=== PATIENT | male | born 2000 | race Caucasian/White ===

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

== ENCOUNTER 2020-10-04 15:13 | Inpatient (IN) | payer SELFPAY ==
[2020-10-04 15:17] VITALS: BP 119/60; PULSE 58; RESP 18; TEMP 36.7; O2SAT 94; BMI 29.0
--- NOTE | 2020-10-04 15:24 | ECG_ITS ---
[facility] Test Date: 2020-10-04 Pat Name: Don Jane II Department: Room: Gender: Male Accounting Assistant: : 2000 Requested By: Jaden Landaverde Order Number: [id number] Selin MD: MCKENZIE MAYA Measurements Intervals [place] Rate: 53 P: 18 AK: 120 QRS: 79 QRSD: 101 T: 58 QT: 387 QTc: 366 Interpretive Statements SINUS BRADYCARDIA POSSIBLE RIGHT VENTRICULAR CONDUCTION DELAY [RSR (QR) IN V1/V2] MODERATE VOLTAGE CRITERIA FOR LVH, CONSIDER NORMAL VARIANT [MEETS CRITERIA IN ONE OF: R(aVL), S(V1), R(V5), R(V5/V6)+S(V1)] ST DEVIATION AND MODERATE T-WAVE ABNORMALITY, CONSIDER ANTERIOR ISCHEMIA [-0.1+ mV T WAVE IN V3/V4] No previous ECG available for comparison Electronically Signed On 10-04-2020 19:23:14 LINING FINISHER by MCKENZIE MAYA [email or web address] IV Sem[facility]ductorf[id number]
[2020-10-04 15:50] LABS: Basophils % 0.5 %; Eosinophils # 0.1 10^3/uL (0.0-0.8); Eosinophils % 1.7 %; Hematocrit 43.1 % (42.0-52.0); Lymphocytes # 1.5 10^3/uL (1.5-6.5); Lymphocytes % 24.4 %; Mean Corpuscular HGB Conc 32.5 g/dL (30.0-36.0); Mean Corpuscular Hemoglobin 30.4 pg (28.0-34.0); Mean Corpuscular Volume 93.7 fL (80-94); Mean Platelet Volume 9.6 fL (7.4-10.4); Monocytes # 0.6 10^3/uL (0.2-0.9); Monocytes % 9.8 %; Neutrophils # 3.77 10^3/uL (1.8-8.0); Neutrophils % 63.4 %; Nucleated Red Blood Cells % 0 %; Platelet Count 245 10^3/cmm (130-400); Red Cell Distribution Width 12.5 % (12.1-15.1); White Blood Count 5.9 10^3/uL (4.5-13.0)
[2020-10-04 16:02] LABS: Add Urine Microscopic? NO
[2020-10-04 16:08] LABS: Bilirubin Urine Neg (Negative); Blood Urine Neg (Negative); Glucose Urine UA Norm (Normal); Ketones Urine Negative (Negative); Leukocyte Esterase Urine Negative (Negative); Nitrate Urine Negative (Negative); Protein Urine Neg (Negative); Specific Gravity, Urine 1.005 (1.005-1.030); Urine Appearance Clear (CLEAR); Urine Color Yellow (Yellow); Urobilinogen Urine Norm (Negative); pH Urine 7 (5-7)
[2020-10-04 16:15] LABS: Amphetamines Screen Urine Negative (Negative); Barbiturates Screen Urine Negative (Negative); Benzodiazepines Screen Urine Negative (Negative); Cocaine Screen Urine Negative (Negative); Opiate Screen Urine Negative (Negative); PCP Screen Urine Negative (Negative); THC Screen Urine Negative (Negative)
[2020-10-04 16:24] LABS: Acetaminophen 9.9 ug/mL (10-30); Alanine Aminotransferase 39 U/L (0-41); Albumin Level 4.4 g/dL (3.5-5.2); Alkaline Phosphatase 92 IU/L (40-130); Anion Gap 13.1 (5-19); Aspartate Amino Transferase 67 U/L (0-40); Blood Urea Nitrogen 18 mg/dL (6-20); Calcium 9.8 mg/dL (8.5-10.5); Carbon Dioxide 27 mmol/L (22-29); Chloride 100 mmol/L (98-107); Globulin 2.8 g/dL (1.3-4.6); Glomerular Filtration Rate 107.6 mL/min (90-130); Glucose 92 mg/dL (65-115); Osmolality Calculated 284 mOsm/kg (285-295); Potassium 4.1 mmol/L (3.5-5.1); Sodium 136 mmol/L (136-145); Thyroid Stimulating Hormone 1.27 uIU/mL (0.27-4.20); Total Bilirubin 0.2 mg/dL (0.15-1.2); Total Protein 7.2 g/dL (6.6-8.7)
[2020-10-04 16:40] LABS: Alcohol Level < 10 mg/dL (0-10); Salicylate < 0.3 mg/dL (3-10)
--- NOTE | 2020-10-04 16:54 | W.ED.PSYCH ---
HPI - Psych General: Chief Complaint: Psychiatric Symptoms Stated Complaint: MHE Time Seen by Provider: 10/04/20 15:24 History of Present Illness: HPI Narrative: The patient is a 20-year-old male with past medical history depression who comes to the ER complaining of suicidal thoughts. When asked if he had a plan he says plans change but offers no explicit plan. He says he has seen multiple mental health providers one time and they did not like him. He follows a primary care physician who gives him escitalopram and Risperdal. He has tried to tie things around his neck in the past but made no attempt today. He says he feels the pressure of everyone's also expectations and he is letting them down and not able to live up to those expectations is the primary reason he feels depressed. MD complaint: suicidal ideation and feels depressed Duration: intermittent History of same: Yes Associated symptoms: Reports depression If self harm: admits thoughts of self harm Review of Systems General: Reports: 10 or more systems reviewed and unremarkable except in HPI and below Const: Denies: fatigue Eyes: Denies: change in vision, blurry vision or eye redness ENMT: Denies: throat pain, swelling of lips/tongue, ear or mastoid pain or nasal congestion Card: Denies: chest pain, palpitations, irregular heart rhythm, edema, dyspnea on exertion or orthopnea Resp: Denies: dyspnea, productive cough or non-productive cough GI: Denies: abdominal pain, diarrhea or GI cramping : Denies: flank pain, urinary frequency or urinary urgency Musc: Denies: neck pain, back pain, extremity pain, joint pain, joint redness, limited range of motion or muscle weakness Skin/Breast: Denies: rash, pruritus, erythema, skin pain or skin tenderness Neuro: Denies: headache(s), numbness in extremities, weakness in extremities, sensory changes, difficulty walking, dizziness, confusion or Slurred speech present Psych: Reports: depression; Denies: anxiety Endo: Denies: polyuria All/Imm: Denies: urticaria, throat swelling or tongue swelling PFSH ED PFSH: Medical History (Updated 10/04/20 @ 17:02 by ) Mood disorder Social History (Updated 12/26/19 @ 15:11 by Cristy Randolph LPN) Smoking and tobacco status: former smoker Quit status (tobacco): has quit using tobacco Year quit tobacco: 09/2019 Former quit date comment: 1 pack per 2 weeks for about 6 months Second hand smoke exposure: No Current gender identity: Male Physical Exam Const: COMMON NORMALS: no acute distress, average body habitus, patient oriented x3, no limitations, healthy appearing, alert and well nourished GENERAL APPEARANCE: cooperative, comfortable, well kempt and well developed ORIENTATION/CONSCIOUSNESS: Yes awake, Yes oriented to person, Yes oriented to place and Yes oriented to time HENMT: COMMON NORMALS: normocephalic, external ears normal and Normal external nose present HEAD & SCALP: normal to inspection and normocephalic NOSE: Normal external nose present EXTERNAL EAR: Yes external ears normal MOUTH: Normal oral and palatal mucosa present THROAT: posterior oropharynx normal Eye: COMMON NORMALS: Equal, round and reactive pupils present and EOMs intact bilaterally GENERAL EYE: appearance normal, both eyes and all related structures PUPIL: Yes Equal, round and reactive pupils present Neck/C-Spine: COMMON NORMALS: full ROM, no lymphadenopathy, no meningeal signs and no JVD GENERAL: Yes normal visual inspection Lymph: LYMPHATIC: no lymphadenopathy noted Chest: COMMONS NORMALS: normal inspection of the chest and normal palpation of entire chest wall Resp: COMMON NORMALS: normal respiratory effort, No retractions, No use of accessory muscles, clear to auscultation bilaterally and percussion normal EFFORT & INSPECTION: Yes able to speak in complete sentences AUSCULTATION: clear to auscultation bilaterally PERCUSSION: percussion normal Cardio: COMMON NORMALS: no JVD, regular rate, regular rhythm, S1 normal heart sound present, S2 normal heart sound present and Peripheral pulses 2+ throughout RATE: regular rate RHYTHM: regular rhythm HEART SOUNDS: S1 normal heart sound present and S2 normal heart sound present PERIPHERAL PULSES: Peripheral pulses 2+ throughout GI: COMMON NORMALS: Normal to inspection, nondistended, normoactive bowel sounds present, Soft to palpation, non-tender and no masses INSPECTION: Yes normal to inspection PALPATION: Yes Soft to palpation : COMMON NORMALS: Yes no CVA tenderness BLADDER/KIDNEY EXAM: Yes no CVA tenderness Back/Pelvis: COMMON NORMALS: no CVA tenderness, thoracic and lumbar spine normal to inspection, no thoracic nor lumbar tenderness and thoraco-lumbar ROM normal Extremity: COMMON NORMALS: normal to inspection, full ROM, capillary refill normal, no joint enlargement and no pedal edema GENERAL: Yes normal exam except as noted Neuro: COMMON NORMALS: patient oriented x3, CN's II-XII intact bilaterally, moves all extremities, no focal motor deficits, no sensory deficits noted and gait normal SENSORIUM/ORIENTATION: Yes alert, Yes oriented to person, Yes oriented to place and Yes oriented to time MENINGEAL SIGNS: Yes no meningeal signs Psych: COMMON NORMALS: mental status grossly normal, cooperative, normal affect and speech normal APPEARANCE: Yes well kempt ATTITUDE: Yes calm SPEECH: Yes normal speech THOUGHT CONTENT: Yes Suicidality present Skin: COMMON NORMALS: no rashes or lesions noted GENERAL SKIN EXAM: no rashes or lesions noted MDM - Psych MDM Narrative: Medical decision making narrative: Patient complains of suicidal ideations. Denies alcohol and drugs. Labs normal. Discussed with Dr. Mcfarlane who accepts to the Neuropsych Unit. Lab Data: Labs: Lab Results 10/04/20 10/04/20 10/04/20 Range/Units 15:37 15:37 15:53 WBC 5.9 (4.5-13.0) 10^3/ uL RBC 4.60 (4.1-5.3) 10^6/u L Hgb 14.0 (11.7-16.6) g/dL Hct 43.1 (42.0-52.0) % MCV 93.7 (80-94) fL MCH 30.4 (28.0-34.0) pg MCHC 32.5 (30.0-36.0) g/dL RDW 12.5 (12.1-15.1) % Plt Count 245 (130-400) 10^3/c mm MPV 9.6 (7.4-10.4) fL Neut % (Auto) 63.4 % Lymph % (Auto) 24.4 % Garrett % (Auto) 9.8 % Eos % (Auto) 1.7 % Baso % (Auto) 0.5 % Neut # (Auto) 3.77 (1.8-8.0) 10^3/u L Lymph # (Auto) 1.5 (1.5-6.5) 10^3/u L Garrett # (Auto) 0.6 (0.2-0.9) 10^3/u L Eos # (Auto) 0.1 (0.0-0.8) 10^3/u L Baso # (Auto) 0.0 (0.0-0.1) 10^3/u L Nucleated RBC % (a uto) 0 % Nucleated RBCs # 0.0 /100WBC Sodium 136 (136-145) mmol/L Potassium 4.1 (3.5-5.1) mmol/L Chloride 100 (98-107) mmol/L Carbon Dioxide 27 (22-29) mmol/L Anion Gap 13.1 (5-19) BUN 18 (6-20) mg/dL Creatinine 0.9 (0.7-1.2) mg/dL GFR Calculation 107.6 (90-130) mL/min Glucose 92 (65-115) mg/dL Calculated Osmolal ity 284 L (285-295) mOsm/k g Calcium 9.8 (8.5-10.5) mg/dL Total Bilirubin 0.2 (0.15-1.2) mg/dL AST 67 H (0-40) U/L ALT 39 (0-41) U/L Alkaline Phosphata se 92 (40-130) IU/L Total Protein 7.2 (6.6-8.7) g/dL Albumin 4.4 (3.5-5.2) g/dL Globulin 2.8 (1.3-4.6) g/dL TSH 1.27 (0.27-4.20) uIU/ mL Urine Color Yellow (Yellow) Urine Appearance Clear (CLEAR) Urine pH 7 (5-7) Ur Specific Gravit y 1.005 (1.005-1.030) Urine Protein Neg (Negative) Urine Glucose (UA) Norm (Normal) Urine Ketones Negative (Negative) Urine Blood Neg (Negative) Urine Nitrate Negative (Negative) Urine Bilirubin Neg (Negative) Urine Urobilinogen Norm (Negative) mg/dL Ur Leukocyte Jud ase Negative (Negative) Salicylates < 0.3 L (3-10) mg/dL Urine Opiates Scre en (Negative) ng/mL Acetaminophen 9.9 L (10-30) ug/mL Ur Barbiturates Sc reen (Negative) ng/mL Ur Phencyclidine S crn (Negative) ng/mL Ur Amphetamines Sc reen (Negative) ng/mL U Benzodiazepines Scrn (Negative) ng/mL Urine Cocaine Scre en (Negative) ng/mL U Marijuana (THC) Screen (Negative) ng/mL Ethyl Alcohol < 10 (0-10) mg/dL 10/04/20 Range/Units 15:53 WBC (4.5-13.0) 10^3/ uL RBC (4.1-5.3) 10^6/u L Hgb (11.7-16.6) g/dL Hct (42.0-52.0) % MCV (80-94) fL MCH (28.0-34.0) pg MCHC (30.0-36.0) g/dL RDW (12.1-15.1) % Plt Count (130-400) 10^3/c mm MPV (7.4-10.4) fL Neut % (Auto) % Lymph % (Auto) % Garrett % (Auto) % Eos % (Auto) % Baso % (Auto) % Neut # (Auto) (1.8-8.0) 10^3/u L Lymph # (Auto) (1.5-6.5) 10^3/u L Garrett # (Auto) (0.2-0.9) 10^3/u L Eos # (Auto) (0.0-0.8) 10^3/u L Baso # (Auto) (0.0-0.1) 10^3/u L Nucleated RBC % (a uto) % Nucleated RBCs # /100WBC Sodium (136-145) mmol/L Potassium (3.5-5.1) mmol/L Chloride (98-107) mmol/L Carbon Dioxide (22-29) mmol/L Anion Gap (5-19) BUN (6-20) mg/dL Creatinine (0.7-1.2) mg/dL GFR Calculation (90-130) mL/min Glucose (65-115) mg/dL Calculated Osmolal ity (285-295) mOsm/k g Calcium (8.5-10.5) mg/dL Total Bilirubin (0.15-1.2) mg/dL AST (0-40) U/L ALT (0-41) U/L Alkaline Phosphata se (40-130) IU/L Total Protein (6.6-8.7) g/dL Albumin (3.5-5.2) g/dL Globulin (1.3-4.6) g/dL TSH (0.27-4.20) uIU/ mL Urine Color (Yellow) Urine Appearance (CLEAR) Urine pH (5-7) Ur Specific Gravit y (1.005-1.030) Urine Protein (Negative) Urine Glucose (UA) (Normal) Urine Ketones (Negative) Urine Blood (Negative) Urine Nitrate (Negative) Urine Bilirubin (Negative) Urine Urobilinogen (Negative) mg/dL Ur Leukocyte Jud ase (Negative) Salicylates (3-10) mg/dL Urine Opiates Scre en Negative (Negative) ng/mL Acetaminophen (10-30) ug/mL Ur Barbiturates Sc reen Negative (Negative) ng/mL Ur Phencyclidine S crn Negative (Negative) ng/mL Ur Amphetamines Sc reen Negative (Negative) ng/mL U Benzodiazepines Scrn Negative (Negative) ng/mL Urine Cocaine Scre en Negative (Negative) ng/mL U Marijuana (THC) Screen Negative (Negative) ng/mL Ethyl Alcohol (0-10) mg/dL Discharge Plan Discharge Patient Disposition: Admitted As Inpatient Admit Provider: Lillian Mcfarlane Clinical Impression: Depression, Suicidal ideation Condition: Stable Coding Level of Care Code ED Latent Fingerprint Examiner for Chg Fwd Exam Comprehensive
[2020-10-04 17:44] VITALS: BP 102/66; PULSE 72; RESP 18; TEMP 36.6; O2SAT 96
[2020-10-04 17:46] VITALS: BP 119/60; PULSE 58; RESP 18; TEMP 36.7; O2SAT 94
[2020-10-04 17:48] VITALS: BP 119/60; PULSE 58; RESP 18; TEMP 36.7; O2SAT 94
[2020-10-04] MEDS: nicotine 2 mg Gum BUCCAL (18:38)
--- NOTE | 2020-10-04 19:31 | P.PN_ITS ---
NPU Therapy Progress Note Therapy Progress Note Date: 10/04/20 Time In: 18:20 Time Out: 18:40 Symptoms Reported: suicidal, anger, irritability Mood: quite friendly and presentation does not match sx reported Progress Note: ALARM INSTALLATION TECHNICIAN approached Don in the dayroom and he is willing to speak with ALARM INSTALLATION TECHNICIAN. This ALARM INSTALLATION TECHNICIAN assisted Don as a crisis therapist in the role of getting him to the hospital safely. Don expressed appreciation of this. He opens up and talks about ongoing SI since teenage years; however, his sx increased after a breakup with a girlfriend (of 3 months). She apparently called him to ask how he was doing and this angered him greatly. He feels as if he was lied to while they were dating. He further discusses issues in the relationship with his father, as he feels he cannot meet his father's expectations. His father did express approval of his Ex which was pleasant and surprising to him, rachel to have the relationship end suddenly and quickly. Don not only experienced eth loss of the relationship, he feels he again lost his father's approval. Intervention: ALARM INSTALLATION TECHNICIAN listened and provided support. ALARM INSTALLATION TECHNICIAN reflected emotions and frustrations and validated the deeper issue of the desire of relationship with his father. He was educated about therapy tx and his need to engage in order to help reduce these repressed anger emotions. Reported Goals Before Discharge: visit with the doctor
[2020-10-04] MEDS: risperiDONE 1 mg Tablet PO (19:47)
[2020-10-04 22:00] VITALS: BP 131/50; PULSE 74; RESP 16; TEMP 36.4; O2SAT 96
[2020-10-05 06:00] VITALS: BP 114/57; PULSE 85; RESP 17; TEMP 36.6; O2SAT 97
[2020-10-05] MEDS: escitalopram 10 mg Tablet PO (09:19)
[2020-10-05] MEDS: nicotine 2 mg Gum BUCCAL ×3 (09:19→20:01)
--- NOTE | 2020-10-05 10:17 | PM.NHP ---
Providers/Chief Complaint Admitting Physician: Lillain Mcfarlane DO Chief Complaint: MHE HPI NPU History of Present Illness Don Jane II is a 20 year old male with history of impulse control, mood disorder, depressive disorder, panic disorder presents to the emergency department in the context of worsening suicidal ideation and depressive symptoms that appear to be exacerbated by less than therapeutic control of his anxiety symptoms as well as inadequate, poor coping with ongoing life stressors to include recent break-up with a girlfriend. Patient reports lifelong history of depressive symptoms as well as chronic, passive suicidal ideation. Patient communicates a lack of control over his life situations and as previously documented in outpatient notes, patient's mother states that the patient has a mismatch between his expectations and reality which she does not deal well with. Patient also describes other borderline traits but denies any history of cutting or self-harm behavior. Patient does have a remote history of self-harm around age 10 with no subsequent episodes. Patient reports reports near daily transient depressive symptoms and has ill-defined past major depressive episodes in which he may have experienced some impairment with social and occupational functioning related to his depressive symptoms. He currently denies any suicidal ideation. Patient reports periods of difficulty sleeping but states that these are secondary to racing thoughts and is never experienced any periods of decreased need for sleep, pressured speech, distractibility related to mood or impulsive, reckless behavior in the context of an elevated or expansive mood state. He does not appear to have any past described episodes of hypomanic or manic behavior. Patient does report some episodes of dysregulation of mood and affect that appear to happen in the midst of crises or during periods of stress in which he feels like he has no control Patient also reports having daily anxiety symptoms for as long as he remembers. He reports excessive worry, difficulty controlling his worrying as well as racing thoughts that impair his ability to initiate sleep. He also reports episodes of panic but denies any preoccupation with subsequent episodes of the consequence of these episodes, nor any changes in his behavior as a result of these panic attacks. He denies being on any higher doses of antidepressant targeting his anxiety symptoms nor any therapy targeted directly at his anxiety symptoms. Psychiatric review of systems is otherwise negative. Patient reports that his symptoms have recently been compounded by break-up with a girlfriend as well as having to work at [employer] after returning from job core secondary to COVID. Review of Systems General: Reports: 10 or more systems reviewed and unremarkable except in HPI and below Meds NPU Home Medications Medication Instructions Recorded Confirmed Last Taken Type escitalopram oxalate 10 mg tablet 10 mg PO DAILY #30 tab 08/22/20 10/04/20 10/04/20 Rx Risperdal 1 mg PO DAILY@0000 10/04/20 10/04/20 10/04/20 History diphenhydramine-acetaminophen 1 tab PO Q4H PRN 10/04/20 10/04/20 10/04/20 History [Pain Reliever (diphen-acetam)] Allergies Allergy/AdvReac Type Severity Reaction Status Date / Time No Known Allergies Allergy Verified 10/04/20 15:23 PFSH NPU PFSH: Medical History Mood disorder Social History Smoking and tobacco status: former smoker Quit status (tobacco): has quit using tobacco Year quit tobacco: 09/2019 Former quit date comment: 1 pack per 2 weeks for about 6 months Second hand smoke exposure: No Current gender identity: Male Other Psychiatric History: Other Psychiatric History: 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, reports history of self-harm around age 10 Reports medication management with psychiatric nurse practitioner on a monthly basis for impulse control, mood disorder, panic disorder Denies any history of psychiatric hospitalization Mental Status Exam MSE Comments: Appears stated age, unshaven, calm, cooperative, interactive, good eye contact Psychomotor activity is neither increased nor decreased, no agitation Speech is normal rate and volume, spontaneous, clear articulation, not pressured I feel okay, full range, not labile Alert and oriented to person, place, time, situation Memory and concentration appear to be intact per interview Intellectual functioning appears to be average based on vocabulary, interview Thought process, linear, no flight of ideas, no looseness of associations Thought content, no delusions, no hallucinations, no suicidal homicidal ideation Insight and judgment appear to be fair to intact Vitals/I&O/Wt Last Vital Signs Temp 97.8 F 10/05/20 06:00 Pulse 85 10/05/20 06:00 Resp 17 10/05/20 06:00 BP 114/57 10/05/20 06:00 Pulse Ox 97 10/05/20 06:00 Weight last 48 hrs Weight 81.647 kg Data NPU : 10/04/20 15:37 10/04/20 15:37 A&P Assessment and plan (1) Depression: Status: Acute (2) Suicidal ideation: Status: Acute (3) Mood disorder: Status: Chronic (4) Generalized anxiety disorder: Status: Acute Additional A&P Information 20-year-old male with longstanding history of depressive symptoms with mood and affect dysregulation, never describes any true hypomania or julianna but describes periods of significant depression causing significant impairment in social and occupational functioning. Patient also describes chronic passive suicidal ideation with external locus of control with ongoing mismatch between expectations and reality with borderline traits but no history of self-harm behavior although has a remote history of self-harm around age 10. Patient attributes recent worsening of suicidal ideation to his antidepressant which she decreased on his own to Lexapro 5 mg with some improvement although reports daily suicidal ideation. Patient would benefit from titrating up on antidepressant targeting depressive and anxiety symptoms as well as therapy targeting development of more adaptive coping strategies. Involuntary Hold Information 96 Hour Hold: 96 Hour Involuntary Admission: No Attestations NPU Medical Necessity Statement*: Require psychiatric hospitalization for medical stabilization and observation for further suicidal ideation, coordination for safe discharge Anticipate hospital stay to exceed 2 midnights Time Spent in Patient Care: Greater than 35 minutes (>than 50% of time spent in counselling and/or direct pt care on unit). Coding Level of Care Code Acute Printed Circuit Boards Stripper Etcher for Arturo Cota Diagnoses Depression F32.9 Suicidal ideation R45.851 Mood disorder F39 Generalized anxiety disorder F41.1
[2020-10-05] MEDS: fluoxetine 10 mg Capsule PO (11:14)
[2020-10-05 14:00] VITALS: BP 118/53; PULSE 75; RESP 18; TEMP 37.2; O2SAT 97
[2020-10-05] MEDS: trazodone 50 mg Tablet PO (20:43)
[2020-10-05] MEDS: risperiDONE 1 mg Tablet PO (20:43)
[2020-10-05 21:09] VITALS: BP 108/51; PULSE 64; RESP 18; TEMP 36.6; O2SAT 97
[2020-10-06 06:00] VITALS: BP 102/57; PULSE 54; RESP 15; TEMP 36.6; O2SAT 96
[2020-10-06] MEDS: nicotine 2 mg Gum BUCCAL ×2 (06:41→09:18)
[2020-10-06] MEDS: fluoxetine 10 mg Capsule PO (08:16)
[2020-10-06] MEDS: nicotine 21 mg Patch 1 PATCH TRANSDERMA (12:12)
--- NOTE | 2020-10-06 12:20 | PM.NDC ---
Diagnoses at Discharge Discharge Diagnosis (1) Depression: Status: Acute (2) Suicidal ideation: Status: Acute (3) Mood disorder: Status: Chronic (4) Generalized anxiety disorder: Status: Acute Reason for Visit Reason for Visit: [facility] Hospital Course Hospital Course 20 year old male with history of impulse control, mood disorder, depressive disorder, panic disorder presents to the emergency department in the context of worsening suicidal ideation and depressive symptoms that appear to be exacerbated by less than therapeutic control of his anxiety symptoms as well as inadequate, poor coping with ongoing life stressors to include recent break-up with a girlfriend. Patient had reported that previous increase of Lexapro had caused him to feel more suicidal although patient does have chronic, passive suicidal ideation as well as describing other borderline personality traits. Patient reports difficulty dealing with stressors but reports not being able to get into [facility] for therapy but has been followed for medication management. Patient's Lexapro was discontinued and started on fluoxetine which was titrated up to fluoxetine 20 mg daily targeting mood and affect instability, anxiety symptoms which he tolerated well with no reports of any medication side effects. Patient participated in unit milieu with no reports of any behavioral disturbances. Patient quickly reconstituted reporting no depressive symptoms and no suicidal ideation with desire to continue outpatient management for his depressive and anxiety symptoms. He was not suicidal at the time of discharge and did not appear to pose an imminent threat of harm to self or others. Low to moderate risk given no current suicidal ideation, no current psychiatric symptoms although patient has chronic, passive suicidal ideation with no recent history of self-harm behavior although patient's risk may be elevated if he is noncompliant with medication, medication management and counseling follow-up to target development of more adaptive coping strategies in the context of ongoing stressors. Risk mitigation included psychiatric hospitalization to observe for any suicidal ideation or behaviors as well as recommendation to continue compliance with his medication medication management and counseling follow-up. Patient was able to communicate his understanding of the need to be compliant with his medication, medication management and counseling follow-up in order to develop more adaptive coping strategies in order to further mitigate his risk of harm to self and others. Involuntary Hold Information 96 Hour Hold: 96 Hour Involuntary Admission: No Mental Status Exam MSE Comments: Appropriately groomed and dressed, calm, polite, interactive, good eye contact Psychomotor activity is neither increased nor decreased, no agitation Speech is normal rate and volume, spontaneous, clear articulation, not pressured I feel much better, full range, not labile Alert and oriented to person, place, time, situation Memory and concentration appear to be intact per interview Thought process, linear, no flight of ideas, no looseness of associations Thought content, no delusions, no hallucinations, no suicidal homicidal ideation Insight and judgment appear to be fair to intact Discharge Data Vitals: Last Vital Signs Temp 97.9 F 10/06/20 06:00 Pulse 54 L 10/06/20 06:00 Resp 15 10/06/20 06:00 BP 102/57 10/06/20 06:00 Pulse Ox 96 10/06/20 06:00 Discharge Plan Discharge Patient Disposition: Home Condition: Stable Prescriptions: New fluoxetine 10 mg Capsule 20 mg PO DAILY Qty: 30 RF: 0 Continued diphenhydramine-acetaminophen 25-500 mg Tablet 1 tab PO Q4H PRN (Reason: Pain) RF: 0 Risperdal 0.5 mg tablet 1 mg PO DAILY@0000 RF: 0 Discontinued escitalopram oxalate 10 mg tablet 10 mg PO DAILY Qty: 30 RF: 1 Discharge Orders: Discharge Order (Routine); Ordered 10/06/20 Ordered By: Lillian Mcfarlane Discharge Diet: Regular Discharge Activity: Resume usual activity Discharge Attestations NPU Time Spent in Discharge Care*: greater than 30 min Status at Discharge: Cognitive status at discharge: cognitively intact, Behavioral status at discharge: cooperative, Functional status at discharge: independent ambulation Overall status at discharge: patient is back to baseline Coding Level of Care Code Acute Catheterization Laboratory Technician for Arturo Cota Diagnoses Depression F32.9 Suicidal ideation R45.851 Mood disorder F39 Generalized anxiety disorder F41.1
[2020-10-06 12:22] VITALS: BP 102/57; PULSE 54; RESP 15; TEMP 36.6; O2SAT 96
== END 2020-10-06 12:26 | disposition home or self-care (01) | DRG 881 ==
LOC: ER 17:02 → NP 17:03
PROVIDERS: Admitting Provider Psychiatry & Neurology Psychiatry; Emergency Provider Family Medicine; Visit Provider Psychiatry & Neurology Psychiatry
DX: F32.9 Major depressive disorder, single episode, unspecified (principal); R45.851 Suicidal ideations; F39 Unspecified mood [affective] disorder; F41.1 Generalized anxiety disorder; Z87.891 Personal history of nicotine dependence; Z91.5 Personal history of self-harm
CPT/HCPCS: 80053; 80306; 80307; 81003; 84443; 85025; 93005; 99285

== ENCOUNTER 2021-06-03 10:22 | Emergency (ER) | payer MEDICAID, SELFPAY ==
[2021-06-03] VITALS (9 sets, daily range): BP systolic 103–135; BP diastolic 63–77; PULSE 45–83; RESP 18; TEMP 36.7; O2SAT 98–99; BMI 26.6
--- NOTE | 2021-06-03 11:55 | XRR_ITS ---
PROCEDURE INFORMATION: Exam: XR Chest Exam date and time: 06/03/2021 11:55 AM Age: 21 years old Clinical indication: Other: Syncope, seizures; Patient HX: Syncope, PT states having seizures TECHNIQUE: Imaging protocol: XR of the chest. Views: 1 view. COMPARISON: CR XR KUB [id number] 08/11/2018 9:50 AM FINDINGS: Lungs: Unremarkable. No consolidation. Pleural spaces: Unremarkable. No pleural effusion. No pneumothorax. Heart/Mediastinum: Unremarkable. No cardiomegaly. Bones/joints: Unremarkable. XR/XR chest 1V portable [id number] IMPRESSION: No acute findings. Radiation Dose CTDIVOL = (mGy): DLP = (mGy-cm)
--- NOTE | 2021-06-03 11:55 | CT_ITS ---
WS: [id number] CT HEAD NONCONTRAST HISTORY: recurrent syncope; possible seizures TECHNIQUE: Contiguous axial imaging performed through the brain in 2.5 mm imaging. Bone and soft tiss ue windows. Sagittal and coronal reformats reviewed. All CT scans at [facility] use at least one of these dose optimization techniques: automated exposure control; mA and/or kV adjustment per pa tient size (includes targeted exams where dose is matched to clinical indication); or iterative recon struction. DLP: 849.21 mGy.cm COMPARISON: None available. No acute intracranial hemorrhage, midline shift or mass effect. No atrophy or prior infarcts or herniation. Ventricles: Normal size with no hydrocephalus. Paranasal sinuses: As visualized are clear. Mastoid air cells: Well pneumatized. Calvarium and scalp: Skull is intact with no soft tissue edema or swelling. CT/CT head wo con* [id number] IMPRESSION: Negative head CT.
[2021-06-03 12:01] LABS: Basophils % 0.3 %; Eosinophils # 0.1 10^3/uL (0.0-0.8); Eosinophils % 1.6 %; Hematocrit 43.4 % (42.0-52.0); Hemoglobin 14.7 g/dL (11.7-16.6); Lymphocytes # 2.1 10^3/uL (0.8-4.8); Lymphocytes % 34.5 %; Mean Corpuscular HGB Conc 33.9 g/dL (30.0-36.0); Mean Corpuscular Hemoglobin 30.4 pg (28.0-34.0); Mean Corpuscular Volume 89.9 fl (80-94); Mean Platelet Volume 10.1 fL (7.4-10.4); Monocytes # 0.5 10^3/uL (0.2-0.9); Monocytes % 7.5 %; Neutrophils % 55.8 %; Nucleated Red Blood Cells % 0 %; Platelet Count 237 10^3/cmm (130-400); Red Blood Count 4.83 10^6/uL (4.1-5.3); Red Cell Distribution Width 11.3 % (12.1-15.1); White Blood Count 6.1 10^3/uL (4.0-10.0)
[2021-06-03 12:23] LABS: Alanine Aminotransferase 12 U/L (0-41); Albumin Level 4.5 g/dL (3.5-5.2); Alkaline Phosphatase 101 IU/L (40-130); Anion Gap 14.3 (5-19); Aspartate Amino Transferase 18 U/L (0-40); Blood Urea Nitrogen 14 mg/dL (6-20); Calcium 9.4 mg/dL (8.5-10.5); Carbon Dioxide 26 mmol/L (22-29); Chloride 101 mmol/L (98-107); Globulin 3.3 g/dL (1.3-4.6); Glomerular Filtration Rate 142.4 mL/min (90-130); Glucose 82 mg/dL (65-115); Osmolality Calculated 284 mOsm/kg (285-295); Potassium 4.3 mmol/L (3.5-5.1); Sodium 137 mmol/L (136-145); Total Bilirubin 0.3 mg/dL (0.15-1.2); Total Protein 7.8 g/dL (6.6-8.7)
--- NOTE | 2021-06-03 12:35 | ED_ITS ---
Documented by User: ROOPA Padilla 06/03/21 14:21 HPI - Syncope General: Chief Complaint: Syncope Stated Complaint: pt states having Seizures Time Seen by Provider: 06/03/21 10:39 Source: patient Mode of arrival: ambulatory Limitations: no limitations History of Present Illness: HPI narrative: Patient is a 21-year-old male who presents to ED today with a complaint of multiple syncopal/possible seizure events. Patient states over the past 2 to 3 weeks he has had a total of 4-6 episodes where he will get tunnel vision and then collapse. He states some episodes have been witnessed by his mother as well as coworkers who have stated that he will jerk and spasm . Patient tells me symptoms do not seem to be brought on by positional changes. He states episodes will last anywhere from 15 seconds to a few minutes. Patient states following these episodes he feels weak, has a frontal headache, feels dizzy and nauseous and slightly disoriented. Patient has never had an episode of incontinence or tongue biting. Patient denies symptoms of heart racing, palpitations, chest pain, or shortness of breath. Symptoms do not seem to be brought on by exertion. He has no history of congenital heart disease. Denies drug use. Current medications include sertraline and risperidone. No recent changes in dosing. MD complaint: loss of consciousness Onset (ago): day(s) Description of event: post-event confusion Prodromal symptoms: vision changes Witnessed: Yes - by Bystander (family, coworker) Context: at rest and standing up Injuries sustained associated with event: none Associated symptoms: Reports headache(s) (following episode ) and nausea (following episode); Deny abdominal pain, chest pain, fever(s) or lightheadedness Treatments prior to arrival: none Review of Systems Const: Denies: fever(s), chills, body aches, fatigue or malaise Eyes: Reports: other (tunnel vision during episodes); Denies: photophobia, eye discomfort, eye discharge, floaters or seeing flashes Card: Reports: syncope; Denies: chest pain, palpitations, irregular heart rhythm, edema, swelling of feet/ankles, lightheadedness, pre-syncope, dyspnea on exertion or orthopnea Resp: Denies: dyspnea, productive cough, non-productive cough or chest congestion GI: Reports: nausea (following episode); Denies: abdominal pain or vomiting Musc: Denies: neck pain, back pain, extremity pain or joint pain Skin/Breast: Denies: rash Neuro: Reports: headache(s) (following episode ) and confusion (following epis ode ); Denies: numbness in extremities, weakness in extremities, sensory changes, difficulty walking or dizziness [facility] ED PFSH: Medical History (Updated 06/03/21 @ 14:00 by ROOPA Padilla) Mood disorder Psychiatric care Social History Smoking and tobacco status: former smoker Quit status (tobacco): has quit using tobacco Year quit tobacco: 09/2019 Former quit date comment: 1 pack per 2 weeks for about 6 months Second hand smoke exposure: No Current gender identity: Male Physical Exam Const: COMMON NORMALS: no acute distress, average body habitus, patient oriented x3, no limitations, healthy appearing, alert and well nourished GENERAL APPEARANCE: cooperative ORIENTATION/CONSCIOUSNESS: Yes awake, Yes oriented to person, Yes oriented to place and Yes oriented to time HENMT: COMMON NORMALS: normocephalic and atraumatic HEAD & SCALP: normo cephalic and atraumatic Neck/C-Spine: COMMON NORMALS: full ROM, no lymphadenopathy and no meningeal signs Resp: COMMON NORMALS: normal respiratory effort and clear to auscultation bilaterally AUSCULTATION: clear to auscultation bilaterally Cardio: COMMON NORMALS: regular rate and regular rhythm RATE: regular rate RHYTHM: regular rhythm Extremity: COMMON NORMALS: normal to inspection Neuro: LOYD COMA SCALE: document GCS findings [place] coma scale eye opening: Spontaneous Loyd coma scale verbal response: Orientated [place] coma scale motor response: Obey commands Loyd coma scale total score: 15 COMMON NORMALS: patient oriented x3, CN's II-XII intact bilaterally, moves all extremities, no focal motor deficits, no sensory deficits noted and gait normal SENSORIUM/ORIENTATION: Yes alert, Yes oriented to person, Yes oriented to place and Yes oriented to time MENINGEAL SIGNS: Yes no meningeal signs Skin: COMMON NORMALS: no rashes or lesions noted GENERAL SKIN EXAM: no rashes or lesions noted Course ED course: orthostatics are normal Vital Signs: Vital signs: Vital Signs Temperature 98.1 F 06/03/21 10:31 Pulse Rate 83 06/03/21 14:18 Respiratory Rate 18 06/03/21 10:31 Blood Pressure 119/71 06/03/21 14:18 Pulse Oximetry 99 06/03/21 14:18 MDM - Syncope MDM Narrative: Medical decision making narrative: Symptoms are not exertional. He does not have complaints of palpitations, shortness of breath, chest pain, orthopnea, or lightheadedness/dizziness. History is most consistent with seizure-like episodes. I will have set her up with neurology for further evaluation. He does want to start anti-elliptic medications today to see if these will help with symptoms. Strict return to ED precautions given. Lab Data: Labs: Lab Results 06/03/21 06/03/21 06/03/21 10:50 10:50 12:25 WBC 6.1 10^3/uL 10^3/ uL (4.0-10.0) RBC 4.83 10^6/uL 10^6 /uL (4.1-5.3) Hgb 14.7 g/dL g/dL (11.7-16.6) Hct 43.4 % % (42.0-52.0) MCV 89.9 fl fl (80-94) MCH 30.4 pg pg (28.0-34.0) MCHC 33.9 g/dL g/dL (30.0-36.0) RDW 11.3 % L % (12.1-15.1) Plt Count 237 10^3/cmm 10^3 /cmm (130-400) MPV 10.1 fL fL (7.4-10.4) Neut % (Auto) 55.8 % % Lymph % (Auto) 34.5 % % Sibley % (Auto) 7.5 % % Eos % (Auto) 1.6 % % Baso % (Auto) 0.3 % % Neut # (Auto) 3.40 10^3/uL 10^3 /uL (1.8-7.7) Lymph # (Auto) 2.1 10^3/uL 10^3/ uL (0.8-4.8) Sibley # (Auto) 0.5 10^3/uL 10^3/ uL (0.2-0.9) Eos # (Auto) 0.1 10^3/uL 10^3/ uL (0.0-0.8) Baso # (Auto) 0.0 10^3/uL 10^3/ uL (0.0-0.1) Nucleated RBC % (a uto) 0 % % Nucleated RBCs # 0.0 /100WBC /100W BC Sodium 137 mmol/L mmol/L (136-145) Potassium 4.3 mmol/L mmol/L (3.5-5.1) Chloride 101 mmol/L mmol/L (98-107) Carbon Dioxide 26 mmol/L mmol/L (22-29) Anion Gap 14.3 (5-19) BUN 14 mg/dL mg/dL (6-20) Creatinine 0.7 mg/dL mg/dL (0.7-1.2) GFR Calculation 142.4 mL/min H mL /min (90-130) Glucose 82 mg/dL mg/dL (65-115) Calculated Osmolal ity 284 mOsm/kg L mOs m/kg (285-295) Calcium 9.4 mg/dL mg/dL (8.5-10.5) Magnesium 2.0 mg/dL mg/dL (1.7-2.3) Total Bilirubin 0.3 mg/dL mg/dL (0.15-1.2) AST 18 U/L U/L (0-40) ALT 12 U/L U/L (0-41) Alkaline Phosphata se 101 IU/L IU/L (40-130) Total Protein 7.8 g/dL g/dL (6.6-8.7) Albumin 4.5 g/dL g/dL (3.5-5.2) Globulin 3.3 g/dL g/dL (1.3-4.6) Urine Opiates Scre en Negative ng/mL ng /mL (Negative) Ur Barbiturates Sc reen Negative ng/mL ng /mL (Negative) Ur Phencyclidine S crn Negative ng/mL ng /mL (Negative) Ur Amphetamines Sc reen Negative ng/mL ng /mL (Negative) U Benzodiazepines Scrn Negative ng/mL ng /mL (Negative) Urine Cocaine Scre en Negative ng/mL ng /mL (Negative) U Marijuana (THC) Screen Negative ng/mL ng /mL (Negative) Imaging Data^: CXR: Radiologist's impression: [email or web address], [place] [address]HAvy ReportSigned Patient: Don Jane II #: [id number]: [id number]#:[id number]/Sex: Date: 06/03/21Loc: ERRoom/Bed:Attending Dr: Ordering Provider/Ordering MD: Sharon Galvez Date of Service: 06/03/21 Procedure(s): XR chest 1V portable [id number] Accession Number(s): [id number] Report Number: [id number] PROCEDURE INFORMATION: Exam: XR Chest Exam date and time: 06/03/2021 11:55 AM Age: 21 years old Clinical indication: Other: Syncope, seizures; Patient HX: Syncope, PT states having seizures TECHNIQUE: Imaging protocol: XR of the chest. Views: 1 view. COMPARISON: CR XR KUB [id number] 08/11/2018 9:50 AM FINDINGS: Lungs: Unremarkable. No consolidation. Pleural spaces: Unremarkable. No pleural effusion. No pneumothorax. Heart/Mediastinum: Unremarkable. No cardiomegaly. Bones/joints: Unremarkable. XR/XR chest 1V portable [id number] IMPRESSION: No acute findings. Radiation Dose CTDIVOL = (mGy): DLP = (mGy-cm) Dictated By:Kwabena Gallegos By:Kwabena Gallegos Date/Time:06/03/21 1305DD/ 1155 CT Head: Radiologist's impression: [facility] [id number] [facility], [place] [address]UH Scan ReportSigned Patient: Don Jane II #: [id number]: [id number]#:[id number]/Sex: Date: 06/03/21Loc: ERRoom/Bed:Attending Dr: Ordering Provider/Ordering MD: Sharon Galvez Date of Service: 06/03/21 Procedure(s): CT head wo con* [id number] Accession Number(s): [id number] Report Number: [id number] WS: [id number] CT HEAD NONCONTRAST HISTORY: recurrent syncope; possible seizures TECHNIQUE: Contiguous axial imaging performed through the brain in 2.5 mm imaging. Bone and soft tissue windows. Sagittal and coronal reformats reviewed. All CT scans at [facility] use at least one of these dose optimization techniques: automated exposure control; mA and/or kV adjustment per patient size (includes targeted exams where dose is matched to clinical indication); or iterative reconstruction. DLP: 849.21 mGy.cm COMPARISON: None available. No acute intracranial hemorrhage, midline shift or mass effect. No atrophy or prior infarcts or herniation. Ventricles: Normal size with no hydrocephalus. Paranasal sinuses: As visualized are clear. Mastoid air cells: Well pneumatized. Calvarium and scalp: Skull is intact with no soft tissue edema or swelling. CT/CT head wo con* [id number] IMPRESSION: Negative head CT. Dictated By:Talisha De Luna DOSigned By:Talisha De Luna DOSigned Date/Time:06/03/21 1302DD/ 1300 EKG Data^: EKG 1: EKG interpretation date: 06/03/21 EKG interpretation time: 11:28 Interpretation: Sinus bradycardia with sinus arrhythmia Normal SC interval/QTc EKG discussed and reviewed with Dr. Strong Discharge Plan Discharge Patient Disposition: Home Clinical Impression: Syncopal episodes Qualifiers: Syncope type: unspecified Qualified Code(s): R55 - Syncope and collapse Condition: Stable Prescriptions: New Keppra 500 mg tablet 500 mg PO BID Qty: 60 RF: 0 No Action risperidone 1 mg tablet 1 mg PO DAILY Qty: 30 RF: 2 sertraline 50 mg tablet 100 mg PO DAILY Qty: 60 RF: 2 diphenhydramine-acetaminophen 25-500 mg Tablet 1 tab PO Q4H PRN (Reason: Pain) RF: 0 Discharge Orders: Discharge ED (Routine); Ordered 06/03/21 Ordered By: Sharon Galvez Activity Restrictions/Additional Instructions: As we discussed I do not want you driving or operating heavy machinery until you are evaluated and instructed otherwise by neurology. Please start medications immediately. You need to return to the ED for any further episodes of passing out. Coding Level of Care Code ED Equipment Monitor Phototypesetting for Chg Fwd Exam Comprehensive Documented by User: Pawel Strong MD 06/07/21 16:38 HPI - Syncope General: Chief Complaint: Syncope Stated Complaint: pt states having Seizures Time Seen by Provider: 06/03/21 10:39 PFSH ED PFSH: Medical History (Updated 06/03/21 @ 14:00 by ROOPA Padilla) Mood disorder Psychiatric care Social History Smoking and tobacco status: former smoker Quit status (tobacco): has quit using tobacco Year quit tobacco: 09/2019 Former quit date comment: 1 pack per 2 weeks for about 6 months Second hand smoke exposure: No Current gender identity: Male Course Vital Signs: Vital signs: Vital Signs Temperature 98.1 F 06/03/21 10:31 Pulse Rate 83 06/03/21 14:18 Respiratory Rate 18 06/03/21 10:31 Blood Pressure 119/71 06/03/21 14:18 Pulse Oximetry 99 06/03/21 14:18 MDM - Syncope MDM Narrative: Medical decision making narrative: I discussed this case with ROOPA Padilla. I have reviewed documentation, labs, imaging. Pawel Strong MD Emergency Medicine Lab Data: Labs: Lab Results 06/03/21 06/03/21 06/03/21 10:50 10:50 12:25 WBC 6.1 10^3/uL 10^3/ uL (4.0-10.0) RBC 4.83 10^6/uL 10^6 /uL (4.1-5.3) Hgb 14.7 g/dL g/dL (11.7-16.6) Hct 43.4 % % (42.0-52.0) MCV 89.9 fl fl (80-94) MCH 30.4 pg pg (28.0-34.0) MCHC 33.9 g/dL g/dL (30.0-36.0) RDW 11.3 % L % (12.1-15.1) Plt Count 237 10^3/cmm 10^3 /cmm (130-400) MPV 10.1 fL fL (7.4-10.4) Neut % (Auto) 55.8 % % Lymph % (Auto) 34.5 % % Sibley % (Auto) 7.5 % % Eos % (Auto) 1.6 % % Baso % (Auto) 0.3 % % Neut # (Auto) 3.40 10^3/uL 10^3 /uL (1.8-7.7) Lymph # (Auto) 2.1 10^3/uL 10^3/ uL (0.8-4.8) Sibley # (Auto) 0.5 10^3/uL 10^3/ uL (0.2-0.9) Eos # (Auto) 0.1 10^3/uL 10^3/ uL (0.0-0.8) Baso # (Auto) 0.0 10^3/uL 10^3/ uL (0.0-0.1) Nucleated RBC % (a uto) 0 % % Nucleated RBCs # 0.0 /100WBC /100W BC Sodium 137 mmol/L mmol/L (136-145) Potassium 4.3 mmol/L mmol/L (3.5-5.1) Chloride 101 mmol/L mmol/L (98-107) Carbon Dioxide 26 mmol/L mmol/L (22-29) Anion Gap 14.3 (5-19) BUN 14 mg/dL mg/dL (6-20) Creatinine 0.7 mg/dL mg/dL (0.7-1.2) GFR Calculation 142.4 mL/min H mL /min (90-130) Glucose 82 mg/dL mg/dL (65-115) Calculated Osmolal ity 284 mOsm/kg L mOs m/kg (285-295) Calcium 9.4 mg/dL mg/dL (8.5-10.5) Magnesium 2.0 mg/dL mg/dL (1.7-2.3) Total Bilirubin 0.3 mg/dL mg/dL (0.15-1.2) AST 18 U/L U/L (0-40) ALT 12 U/L U/L (0-41) Alkaline Phosphata se 101 IU/L IU/L (40-130) Total Protein 7.8 g/dL g/dL (6.6-8.7) Albumin 4.5 g/dL g/dL (3.5-5.2) Globulin 3.3 g/dL g/dL (1.3-4.6) Urine Opiates Scre en Negative ng/mL ng /mL (Negative) Ur Barbiturates Sc reen Negative ng/mL ng /mL (Negative) Ur Phencyclidine S crn Negative ng/mL ng /mL (Negative) Ur Amphetamines Sc reen Negative ng/mL ng /mL (Negative) U Benzodiazepines Scrn Negative ng/mL ng /mL (Negative) Urine Cocaine Scre en Negative ng/mL ng /mL (Negative) U Marijuana (THC) Screen Negative ng/mL ng /mL (Negative) Discharge Plan Discharge Patient Disposition: Home Clinical Impression: Syncopal episodes Qualifiers: Syncope type: unspecified Qualified Code(s): R55 - Syncope and collapse Condition: Stable Prescriptions: New Keppra 500 mg tablet 500 mg PO BID Qty: 60 RF: 0 No Action risperidone 1 mg tablet 1 mg PO DAILY Qty: 30 RF: 2 sertraline 50 mg tablet 100 mg PO DAILY Qty: 60 RF: 2 diphenhydramine-acetaminophen 25-500 mg Tablet 1 tab PO Q4H PRN (Reason: Pain) RF: 0 Discharge Orders: Discharge ED (Routine); Ordered 06/03/21 Ordered By: Sharon Galvez Activity Restrictions/Additional Instructions: As we discussed I do not want you driving or operating heavy machinery until you are evaluated and instructed otherwise by neurology. Please start medications immediately. You need to return to the ED for any further episodes of passing out. Coding Level of Care Code ED Equipment Monitor Phototypesetting for Arturo Cota Exam Comprehensive
[2021-06-03 12:58] LABS: Amphetamines Screen Urine Negative (Negative); Barbiturates Screen Urine Negative (Negative); Benzodiazepines Screen Urine Negative (Negative); Cocaine Screen Urine Negative (Negative); Opiate Screen Urine Negative (Negative); PCP Screen Urine Negative (Negative); THC Screen Urine Negative (Negative)
--- NOTE | 2021-06-04 09:22 | DCPLANNER ---
manager company had message to schedule a follow up appointment for patient with neurology. manager company emailed patients information to the neurology clinic. Patients information will be printed and reviewed. Clinic will call patient with appointment information.
--- NOTE | 2021-06-06 07:29 | DCPLANNER ---
Patient has a follow up appointment scheduled for Wednesday, June 09, 2021 at 10:[address] Mcnalyl. Clinic will call patient with appointment information.
--- NOTE | 2021-06-12 16:28 | DCPLANNER ---
Patient had a follow up appointment scheduled for 06.09.[address] Mcnally - patient did attend appointment.
== END 2021-06-03 14:20 | disposition home or self-care (01) ==
PROVIDERS: Emergency Provider Physician Assistant
DX: R55 Syncope and collapse (principal); Z87.891 Personal history of nicotine dependence; F39 Unspecified mood [affective] disorder
CPT/HCPCS: 70450; 71045; 80053; 80306; 83735; 85025; 93005; 99283

== ENCOUNTER → 2021-06-09 10:21 | Outpatient (BNVA) | payer MEDICAID, SELFPAY | PROVIDERS: Referring Provider Physician Assistant; Visit Provider Nurse Practitioner | DX: R56.9 Unspecified convulsions (principal); F90.9 Attention-deficit hyperactivity disorder, unspecified type; F17.290 Nicotine dependence, other tobacco product, uncomplicated | CPT/HCPCS: 99204 ==

== ENCOUNTER → 2021-06-18 08:32 | Outpatient (BNVA) | payer MEDICAID, SELFPAY | PROVIDERS: PCP Family Medicine; Referring Provider Nurse Practitioner; Visit Provider Specialist | DX: R56.9 Unspecified convulsions (principal); F17.290 Nicotine dependence, other tobacco product, uncomplicated | CPT/HCPCS: 95816 ==

== ENCOUNTER 2021-06-26 10:34 | Outpatient (CLI) | payer MEDICAID, SELFPAY ==
[2021-06-26 10:56] LABS: Basophils % 0.6 %; Eosinophils # 0.1 10^3/uL (0.0-0.8); Eosinophils % 1.9 %; Hematocrit 43.8 % (42.0-52.0); Lymphocytes # 1.6 10^3/uL (0.8-4.8); Mean Corpuscular HGB Conc 34.2 g/dL (30.0-36.0); Mean Corpuscular Hemoglobin 30.5 pg (28.0-34.0); Mean Corpuscular Volume 89.2 fl (80-94); Mean Platelet Volume 9.3 fL (7.4-10.4); Monocytes # 0.4 10^3/uL (0.2-0.9); Monocytes % 8.8 %; Neutrophils # 2.54 10^3/uL (1.8-7.7); Neutrophils % 54.5 %; Nucleated Red Blood Cells % 0 %; Platelet Count 207 10^3/cmm (130-400); Red Blood Count 4.91 10^6/uL (4.1-5.3); Red Cell Distribution Width 11.1 % (12.1-15.1); White Blood Count 4.7 10^3/uL (4.0-10.0)
[2021-06-26 11:25] LABS: Alanine Aminotransferase 8 U/L (0-41); Albumin Level 4.5 g/dL (3.5-5.2); Alkaline Phosphatase 93 IU/L (40-130); Ammonia 24 umol/L (16-60); Aspartate Amino Transferase 12 U/L (0-40); Globulin 2.5 g/dL (1.3-4.6); Total Bilirubin 0.4 mg/dL (0.15-1.2); Valproic Acid Level 42.9 ug/mL (50-100)
== END 2021-06-26 10:35 | disposition home or self-care (01) ==
LOC: LAB 10:40
PROVIDERS: Nurse Practitioner; PCP Family Medicine; Visit Provider Specialist
DX: Z01.89 Encounter for other specified special examinations (principal); G40.909 Epilepsy, unspecified, not intractable, without status epilepticus; E72.20 Disorder of urea cycle metabolism, unspecified; K76.9 Liver disease, unspecified
CPT/HCPCS: 36415; 80076; 80164; 82140; 85025

== ENCOUNTER → 2021-07-03 08:24 | Outpatient (BNVA) | payer MEDICAID, SELFPAY | PROVIDERS: PCP Family Medicine; Visit Provider Nurse Practitioner Psychiatric/Mental Health | DX: F41.1 Generalized anxiety disorder (principal); F63.9 Impulse disorder, unspecified; F41.0 Panic disorder [episodic paroxysmal anxiety] | CPT/HCPCS: 99214 ==

== ENCOUNTER → 2021-08-06 08:04 | Outpatient (BNVA) | payer MEDICAID, SELFPAY | PROVIDERS: PCP Family Medicine; Visit Provider Specialist | DX: R56.9 Unspecified convulsions (principal); R55 Syncope and collapse; F41.1 Generalized anxiety disorder; F32.9 Major depressive disorder, single episode, unspecified | CPT/HCPCS: 99214; 99215 ==

== ENCOUNTER → 2021-09-16 09:09 | Outpatient (BNVA) | payer MEDICAID, SELFPAY | PROVIDERS: PCP Family Medicine; Visit Provider Nurse Practitioner Psychiatric/Mental Health | DX: Z79.899 Other long term (current) drug therapy (principal); F41.1 Generalized anxiety disorder; F63.9 Impulse disorder, unspecified; F41.0 Panic disorder [episodic paroxysmal anxiety] | CPT/HCPCS: 80061; 83036; 99214 ==

== ENCOUNTER → 2021-11-17 14:23 | Outpatient (BNVA) | payer MEDICAID, SELFPAY | PROVIDERS: PCP Family Medicine; Visit Provider Nurse Practitioner Psychiatric/Mental Health | DX: F41.1 Generalized anxiety disorder (principal); F41.0 Panic disorder [episodic paroxysmal anxiety]; F63.9 Impulse disorder, unspecified | CPT/HCPCS: 99213 ==

== ENCOUNTER → 2021-12-03 14:41 | Outpatient (BNVA) | payer MEDICAID, SELFPAY | PROVIDERS: PCP Family Medicine; Visit Provider Specialist | DX: G40.909 Epilepsy, unspecified, not intractable, without status epilepticus (principal); R55 Syncope and collapse; F41.1 Generalized anxiety disorder; F32.9 Major depressive disorder, single episode, unspecified; F17.290 Nicotine dependence, other tobacco product, uncomplicated | CPT/HCPCS: 99214 ==

== ENCOUNTER → 2022-01-12 14:20 | Outpatient (BNVA) | payer MEDICAID, SELFPAY | PROVIDERS: PCP Family Medicine; Visit Provider Specialist | DX: R56.9 Unspecified convulsions (principal) | CPT/HCPCS: 99214 ==

== ENCOUNTER 2024-08-08 21:05 | Emergency (ER) | payer SELFPAY ==
[2024-08-08 21:22] VITALS: BP 144/76; PULSE 73; RESP 17; TEMP 36.9; O2SAT 97; BMI 26.6
--- NOTE | 2024-08-08 21:40 | USR_ITS ---
PROCEDURE INFORMATION: Exam: US Left Limited Joint or Other Non-Vascular Extremity Structure Exam date and time: 08/08/2024 10:04 PM Age: 24 years old Clinical indication: Pain; Thigh; Patient HX: Left inguinal hernia evaluation. TECHNIQUE: Imaging protocol: US left limited joint or other nonvascular extremity structure. Real-time ultrasound with image documentation. Exam focused on the area of clinical interest. COMPARISON: No relevant prior studies available. FINDINGS: Soft tissues: Unremarkable. No loculated collections. Other findings: Left inguinal hernia seen with a neck measuring approximately 1.1 cm. US/US soft tissue/extremity [id number] IMPRESSION: Left inguinal hernia seen with a neck measuring approximately 1.1 cm.
[2024-08-08] MEDS: ketorolac 60 mg/2 mL INJ IM (21:54)
--- NOTE | 2024-08-08 21:57 | W.ED.MALEGU ---
HPI - Male Genitourinary General: Chief complaint: Urogenital-Male Stated complaint: groin problems Time Seen by Provider: 08/08/24 21:13 Source: patient Mode of arrival: ambulatory Limitations: no limitations History of Present Illness: Patient is a 24-year-old male presents the emergency department with left pelvic pain onset today after lifting heavy box. Reports history of inguinal hernia in this area, states that he thinks this is what is causing his pain. States that he feels nauseous, pain radiating into left testicle. No fever, vomiting, or other symptoms at this time. Vitals unremarkable. Reports his pain is worse with walking. No urinary symptoms. MD Complaint: testicle pain and hernia Onset (ago): hour(s) Duration: constant Location: left inguinal region Radiation: left testicle Severity: moderate Exacerbating factors: movement Associated symptoms: Reports nausea; Deny dysuria or vomiting Related Data Previous Rx's Medication Instructions Recorded divalproex 500 mg tablet,extended 1,000 mg (2 x 500 mg) PO BEDTIME 01/12/22 release 24 hr (Depakote ER) #60 tabs risperidone 1 mg tablet 1 mg PO .q hs #14 tabs 04/14/22 sertraline 50 mg tablet 100 mg (2 x 50 mg) PO DAILY #30 04/14/22 tabs Allergies Allergy/AdvReac Type Severity Reaction Status Date / Time No Known Allergies Allergy Verified 08/08/24 21:28 Review of Systems General: Reports: 10 or more systems reviewed and unremarkable except in HPI and below Const: Denies: fever(s), chills, change in appetite, change in weight or diaphoresis ENMT: Denies: throat pain or hoarseness Card: Denies: chest pain, palpitations or lightheadedness Resp: Denies: dyspnea, productive cough or wheezing GI: Reports: abdominal pain (Left pelvic region/hernia) and nausea; Denies: vomiting, diarrhea, constipation, bloating, change in stool character or hematochezia : Reports: testicular pain; Denies: flank pain, difficulty urinating, dysuria, urinary frequency or urinary urgency Musc: Denies: neck pain or back pain Skin/Breast: Denies: rash or new lesions Neuro: Denies: headache(s) or dizziness PFS ED PFSH: Medical History Witnessed seizure-like activity Mood disorder Social History Smoking and tobacco/nicotine status: current some day tobacco/nicotine user e-cigarettes E-Cigarette Details: vaporizer device E-cig/vape details: 5% nicotine 1 POD per EOD Quit status (tobacco/nicotine): has quit using Year quit tobacco: 09/2019 Former quit date comment: 1 pack per 2 weeks for about 6 months Second hand smoke exposure: No Current gender identity: Male Physical Exam Const: COMMON NORMALS: no acute distress, average body habitus, no limitations, healthy appearing and well nourished GENERAL APPEARANCE: cooperative and comfortable ORIENTATION/CONSCIOUSNESS: Yes awake HENMT: COMMON NORMALS: normocephalic, atraumatic, hearing grossly normal bilaterally, external ears normal, Normal external nose present, Normal nasal mucous membranes and turbinates present and moist oral mucous membranes HEAD & SCALP: normocephalic and atraumatic NOSE: Normal external nose present and Normal nasal mucous membranes and turbinates present EXTERNAL EAR: Yes external ears normal Eye: COMMON NORMALS: Equal, round and reactive pupils present, EOMs intact bilaterally, conjunctivae normal and normal visual dubon by confrontation CONJUNCTIVA: Yes conjunctivae normal PUPIL: Yes Equal, round and reactive pupils present Neck/C-Spine: COMMON NORMALS: full ROM, supple and no JVD Resp: COMMON NORMALS: normal respiratory effort, No retractions, No use of accessory muscles and clear to auscultation bilaterally AUSCULTATION: clear to auscultation bilaterally, no crackles, no rales, no rhonchi and no wheezes Cardio: COMMON NORMALS: no JVD, regular rate, regular rhythm, S1 normal heart sound present, S2 normal heart sound present, No gallops present (Cardio), No clicks present (Cardio), No murmurs present (Cardio), No rub (Cardio) and Peripheral pulses 2+ throughout RATE: regular rate RHYTHM: regular rhythm HEART SOUNDS: S1 normal heart sound present and S2 normal heart sound present PERIPHERAL PULSES: Peripheral pulses 2+ throughout GI: COMMON NORMALS: Normal to inspection, nondistended, normoactive bowel sounds present, Soft to palpation, non-tender, No hepatosplenomegaly present and no masses AUSCULTATION: Yes normoactive bowel sounds PALPATION: Yes Soft to palpation, No Guarding due to palpation present (GI), No Rigid due to palpation and Yes No hepatosplenomegaly present RECTAL EXAM: Yes deferred : COMMON NORMALS: Yes Testes normal SCROTUM: Yes inguinal hernia Inguinal hernia laterality: left Extremity: COMMON NORMALS: normal to inspection and full ROM Psych: COMMON NORMALS: mental status grossly normal, cooperative and speech normal SPEECH: Yes normal speech Skin: COMMON NORMALS: no rashes or lesions noted GENERAL SKIN EXAM: no rashes or lesions noted Course Vital Signs: Vital signs: Vital Signs Temperature 98.5 F 08/08/24 21:22 Pulse Rate 70 08/08/24 22:00 Respiratory Rate 16 08/08/24 22:00 Blood Pressure 144/76 08/08/24 21:22 Pulse Oximetry 99 08/08/24 22:00 Oxygen Delivery Me thod Room Air 08/08/24 21:22 MDM - Male Medical Decision Making Patient presented with left pelvic pain, history of inguinal hernia. On examination was palpable left inguinal hernia, was mostly reduced at the time, was further reduced then. Ultrasound of the area did not demonstrate any strangulation or incarceration, sliding hernia present here as well. Will refer to general surgery for outpatient elective surgical evaluation, encouraged him to return with any fevers or inability to reduce it. Given shot of Toradol here, pain controlled and upon recheck patient was sleeping comfortably. Return precautions given. Patient comfortable discharge home. Discussed case briefly with Dr. Bates. Lab Data Laboratory Results Urine Color Yellow (Yellow) 08/08/24 20:20 Urine Appearance Cloudy (CLEAR) A 08/08/24 20:20 Urine pH 6.0 (5-7) 08/08/24 20:20 Ur Specific [place] 1.028 (1.005-1.030) 08/08/24 20:20 Urine Protein Negative (Negative) 08/08/24 20:20 Urine Glucose (UA) Negative (Normal) 08/08/24 20:20 Urine Ketones Negative (Negative) 08/08/24 20:20 Urine Blood Negative (Negative) 08/08/24 20:20 Urine Nitrate Negative (Negative) 08/08/24 20:20 Urine Bilirubin Negative (Negative) 08/08/24 20:20 Urine Urobilinogen 1.0 mg/dL (Negative) 08/08/24 20:20 Ur Leukocyte Esterase Negative (Negative) 08/08/24 20:20 Urine RBC 0-2 /hpf (0-2) 08/08/24 20:20 Urine WBC 0-5 /hpf (0-5) 08/08/24 20:20 Ur Squamous Epith Cells 0-5 /hpf (0-5) 08/08/24 20:20 Amorphous Sediment Not Reportable 08/08/24 20:20 Urine Bacteria None seen /hpf (NONE) 08/08/24 20:20 Hyaline Casts 0-4 /lpf H 08/08/24 20:20 XR interpretation done by ED provider, pending radiology final review ED provider radiology interpretation(s): Bedside ultrasound interpretation showing sliding left inguinal hernia, no strangulation or incarceration. Discharge Plan Discharge Patient Disposition: Home Clinical Impression: Hernia, inguinal, left Condition: Stable Prescriptions: No Action divalproex [Depakote ER] 500 mg tablet extended release 24 hr 1,000 mg PO BEDTIME Qty: 60 6RF sertraline 50 mg tablet 100 mg PO DAILY Qty: 30 0RF Rx Instructions: take 2 tablets daily by mouth risperidone 1 mg tablet 1 mg PO .q hs Qty: 14 0RF Rx Instructions: Take one tablet daily at bedtime Discharge Orders: Discharge ED (Routine); Ordered 08/08/24 Ordered By: Clement Anglin Referrals: Duyen Mukherjee MD [Primary Care Provider] - Patient Instructions: Inguinal Hernia (ED), Opioid Safety, Pain Management Activity Restrictions/Additional Instructions: Follow-up with general surgery. Ibuprofen for pain. Return with any high fever, vomiting, severe worsening of pain, or other concerning symptoms. Please see attached patient instructions for further education. Stand Alone Forms: Work/School Release Coding Level of Care Code ED [employer] Legal Secretary for [employer]
[2024-08-08 22:00] VITALS: PULSE 70; RESP 16; O2SAT 99
[2024-08-08 22:25] LABS: Bilirubin Urine Negative (Negative); Blood Urine Negative (Negative); Glucose Urine UA Negative (Normal); Ketones Urine Negative (Negative); Leukocyte Esterase Urine Negative (Negative); Nitrate Urine Negative (Negative); Protein Urine Negative (Negative); Specific Gravity, Urine 1.028 (1.005-1.030); Urine Appearance Cloudy (CLEAR); Urine Color Yellow (Yellow)
[2024-08-08 22:30] LABS: Add Urine Microscopic? YES; Bacteria Urine None Seen /hpf; Hyaline Casts Urine 0-4 /lpf; RBC Urine 0-2 /hpf (0-2); Squamous Epithelial Cell Urine 0-5 /hpf (0-5); WBC Urine 0-5 /hpf (0-5)
--- NOTE | 2024-08-09 09:56 | DCPLANNER ---
Message sent to General surgery for follow up on Hernia
== END 2024-08-08 23:50 | disposition home or self-care (01) ==
PROVIDERS: Emergency Provider Physician Assistant; PCP Family Medicine
DX: K40.90 Unilateral inguinal hernia, without obstruction or gangrene, not specified as recurrent (principal); F17.290 Nicotine dependence, other tobacco product, uncomplicated
CPT/HCPCS: 76882; 81001; 96372; 99284; J1885

== ENCOUNTER 2024-09-21 10:17 | Outpatient (CLI) | payer MEDICAID, SELFPAY ==
--- NOTE | 2024-09-21 10:45 | CT_ITS ---
WS: [id number] CT ABDOMEN PELVIS TECHNIQUE: Contrast-enhanced CT of the abdomen and pelvis with coronal and sagittal reformatted images. CLINICAL INFORMATION: evaluation of bilateral groin pain COMPARISON: Ultrasound 2017 DLP: 384.[address] scans at [facility] use at least one of these dose optimization techniques: automated exposure control; mA and/or kV adjustment per patient size (includes targeted exams where dose is matched to clinical indication); or iterative reconstruction. FINDINGS: Shallow fat-containing LEFT inguinal hernia. No herniated bowel. No significant right-sided hernia. Small bilateral inguinal lymph nodes. Normal liver. Normal spleen. Normal GE junction. Normal portal vein and splenic vein. Normal pancreatic parenchymal enhancement. Lung bases are well aerated. Normal caliber abdominal aorta. Adrenal glands are normal. No hydronephrosis. Normal sigmoid colon. CT/CT abdomen pelvis w con* [id number] IMPRESSION: 1. Shallow fat-containing LEFT inguinal hernia. No herniated bowel. 2. Several normal sized inguinal lymph nodes. 3. Prior appendectomy. 4. No other acute findings.
[2024-09-21] MEDS: iohexol 350 mg/mL 500 mL Btl (per mL) PO (11:17)
[2024-09-21] MEDS: iohexol 350 mg/mL 500 mL Btl (per mL) IV (11:39)
== END 2024-09-21 10:18 | disposition home or self-care (01) ==
PROVIDERS: Visit Provider Surgery
DX: R10.31 Right lower quadrant pain (principal); R10.32 Left lower quadrant pain; Z98.890 Other specified postprocedural states; R59.0 Localized enlarged lymph nodes
CPT/HCPCS: 74177

== ENCOUNTER → 2025-02-14 11:16 | Outpatient (BNVA) | payer MEDICAID, SELFPAY | PROVIDERS: Visit Provider Nurse Practitioner Psychiatric/Mental Health | DX: Z79.899 Other long term (current) drug therapy (principal) | CPT/HCPCS: 83036 ==

== ENCOUNTER → 2025-03-15 15:08 | Outpatient (BNVA) | payer MEDICAID, SELFPAY | PROVIDERS: Visit Provider Nurse Practitioner Psychiatric/Mental Health | DX: Z79.899 Other long term (current) drug therapy (principal) | CPT/HCPCS: 80053 ==